=== PATIENT | female | born 1965 | race Caucasian/White ===

== ENCOUNTER 2024-12-07 15:10 | Outpatient (REF) | payer BC, SELFPAY ==
--- OUTSIDE RECORDS SUMMARY | 2024-12-07 15:16 | XMS_ITS | Data Portability ---
Author Organization [facility]tero [facility] [address] Address [address] [place] [address] Assessment No assessment recorded. Plan of Treatment Reminders Order Date Submit Date Provider Last Modified By Organization Details Last Modified Time Details Appointments None recorded. Lab None recorded. Referral None recorded. Procedures None recorded. Surgeries None recorded. Imaging None recorded. Medication Orders albuterol sulfate 2.5 mg/3 mL (0.083 %) solution for nebulizatio n 2023 024 [email or web address] Not available 13:52:55 albuterol sulfate HFA 90 mcg/actuati on aerosol inhaler 2023 024 [facility] #[id number], [address] [place], [address], 4 14:22:50 prednisone 20 mg tablet 2023 024 [facility] #[id number], [address] [place], [address], 4 14:24:50 Patient TargetsNo targets recorded. Patient Instructions Encounter Date Encounter Id Patient Instructions Last Modified By Organization Details Last Modified Time 12/07/2023 [id number] peak flow* [email or web address] Not available 0 12/07/2023 14:16:45 How to use the Aerochamber Attach the inhaler to the chamber Cameron 2 puffs in to the chamber Put the chamber in your mouth with you lips closed around it Take 3 separate breaths from the chamber. Don't breath into the chamber. See printed instructions. Follow-up with your doctor if no improvement in 1 week. Seek Emergency Medical evaluation for any worsening symptoms. [email or web address] Not available 12/07/2023 14:23:11 Reason for Referral None Reported. Results Created Date Observation Date Name Description Value Unit Range Abnormal Flag Note LastModifiedBy Organization Detail LastModifiedTime 12/07/19 24 12/07/2023 peak flow* Pre (L/min) 278 Not Available [address] [place], [place] [address] [place] [address], [phone], 12/07/2023 13:38:17 12/07/19 24 12/07/2023 peak flow* Pulse 62 Not Available [address] [place], [place] [address] [address] [place] [address], [phone], 12/07/2023 13:38:17 12/07/19 24 12/07/2023 peak flow* Oxygen Saturation 99 Not Available [address] [place] [address], [phone], 12/07/2023 13:38:17 12/07/19 24 12/07/2023 peak flow* Post (L/min) 325 Not Available [address] [place], [place] [address], [phone], 12/07/2023 13:38:17 Result Notes None recorded. Problems No Known Problems Medical Equipment None Reported. Allergies No known drug allergies Medications Name Sig Start Date Stop Date Status Note LastModified by Organization Details LastModified Time albuterol sulfate 2.5 mg/3 mL (0.083 %) solution for nebulization Inhale 3 mL by nebulizatio n route. 2023 active Not Available Not Available Not Avai lable prednisone 20 mg tablet Take 3 tablets every day by oral route for 5 days, for congestion with wheezing. 2023 active Not Available Not Available Not Avai lable albuterol sulfate HFA 90 mcg/actuatio n aerosol inhaler Inhale 2 puffs 3 times a day by inhalation route for 7 days, for wheezing. 2023 active Not Available Not Available Not Avai lable Vitals Date Recorded Body height Body mass index (BMI) Body weight Pain severity - 0-10 verbal numeric rating [Score] - Reported Body temperature Respiratory rate Heart rate Oxygen saturation Oxygen saturation in Arterial blood by Pulse oximetry Systolic blood pressure Diastolic blood pressure Systolic blood pressure Diastolic blood pressure Provider Name and Address Organization Details Last Updated DateTime 4 154.94 cm 27.2 kg/m2 61468.3 g 0 97.1 [degF] 17 /min 55 /min 98 % 98 % 153 mm[Hg] 90 mm[Hg] 146 mm[Hg] 90 mm[Hg] Parisa Gould [place] - [facility] [employer] [facility] 13:27:28 Social History Question Answer Notes LastModified by [employer] ion Details LastModified Time Tobacco Smoking Status Never Smoker Parisa elizabeth [place] - [employer] [facility] 12/07/2023 13:22:07 What Is Your Level Of Alcohol Consumption? Occasional Information not available 12/07/2023 Are You Currently Employed? Yes [email or web address] Information not available 12/07/2023 Have You Had A Flu Shot This Season? No Information not available 12/07/2023 Have You Had Direct Contact, Or Contact During Intimacy, With Monkeypox Rash, Scabs, Or Body Fluids From A Person With Monkeypox? No [email or web address] Information not available 12/07/2023 What Is Your Relationship Status? [email or web address] Information not available 12/07/2023 Do You Use Any Illicit Or Recreational Drugs? No Information not available 12/07/2023 Have You Recently Traveled Abroad? No [email or web address] Information not available 12/07/2023 Do You Or Have You Ever Used Any Other Forms Of Tobacco Or Nicotine? No [email or web address] Information not available 12/07/2023 Sex: Unknown Functional Status None recorded. Mental Status None recorded. Family History Relationship Description Onset Age of this Age Resolved Age Notes LastModified by Organization Details LastModified Time Father No current problems or disability Not available 12/06 13:21:46 Mother No current problems or disability [email or web address] Not available 12/06 13:21:46 Medical History No medical history recorded. Gynecological History Statement/Question Response Is there any chance of ? No Obstetrics History GPAL:G 0 P 0 0 0 0 Past Encounters Encounter ID Performer Location Encounter Start Date Encounter Closed Date Diagnosis/Indication Diagnosis SNOMED-CT Code Diagnosis ICD10 Code Diagnosis Note [id number] [facility] [address] [place] [phone] 09/16/2019 13:11:31 09/16/2019 14:52:[id number] [place] [address] [address] [facility] [address] [place] [phone] 04/04/2021 13:49:02 04/04/2021 15:22:[id number] [place] [address] [address] [facility] [address] [place] [phone] 01/02/2016 10:33:34 01/02/2016 11:03:[id number] [place] [address] [address] [facility] [address] [place] [phone] 7 09/13/2019 15:48:32 09/13/2019 16:50:[id number] [place] [address] [address] [facility] [address] [place] [phone] 01/26/2017 16:25:28 01/26/2017 16:56:46 [id number] LEIGH [place] JULIO [place] [address] [place] [phone] 12/07/2023 13:12:51 12/07/2023 14:25:10 Persistent cough 905779588 R05.3 Black Elderberry Syrup:1-2 tsp 2-3 times a day for 5 days as needed for coughing.S ambucol Black Elderberry Original Syrup (available at [employer] )[employer] Black Elderberry Syrup, 5.4-Ounce Bottle (available at [employer] or [employer]) Use a cool mist humidifier in the room that you sleep to add moisture to the air, which should soothe the airways and help loosen any mucus that may be present. Health Concerns Section Related Observation LastModified by Organization Detai ls LastModified Time None Recorded Concern Status LastModified by Organization Details LastModified Time None Recorded Advance Directives Directive None Recorded Payers Encounter Date Sequence Insurance Name Policy Number Policy Thomas Covered Member ID Thomas Member ID Guarantor Name 01/26/2017 1 [place] [facility] ([place]) [id number] Barak S Thomas [id number] Lulu Thomas 09/13/2019 1 [place] [facility] ([place]) [id number] Barak S Thomas [id number] Lulu Thomas 09/16/2019 1 [place] [id number] Barak S Thomas [id number] Lulu Thomas 04/04/2021 1 [place] [facility] ([place]) [id number] Barak S Thomas [id number] Lulu Thomas 12/07/2023 1 [place] [facility] ([place]) [id number] Barak S Thomas [id number] Lulu Thomas Notes Date Note Type Note Provider Name and Address Organization Details Recorded Time 12/07/2023 text/html CongestionReport ed bypatient.Location:[facility]; without radiation Quality:tightness; inspiratory; expiratory; Wheezing Severity:moderate Duration:1 weeks Onset/Timing:daily Context:recent respiratory illness Aggravating Factors:none Alleviating Factors:rest Associated Symptoms:no shortness of breath; no chest pain/discomfort; no palpitations; no orthopnea; no paroxysmal nocturnal dyspnea; no fever; no chills; no night sweats; no sputum production; no hemoptysis; no weight gain; no dyspepsia; no dyspnea; no shortness of breath; no lightheadedness; no weakness; no hoarseness; does not limit activity; no anorexia; no mental status change; no weight loss; no tachycardia; no tachypnea; no hypoxemia; normal work of breathing; no peripheral edema; normal exercise tolerance;wheezing;fati dio;cough LEIGH ANN JULIO MD [address] [place], [address], [place] - [facility] 12/07/2023 14:40:15 OBGyn Episode No OBEpisode recorded.
--- OUTSIDE RECORDS SUMMARY | 2024-12-07 15:16 | XMS_ITS | Data Portability ---
Author Organization [facility], Home Service Address [address] [place] [address] Assessment Encounter Date Assessment Date Assessment LastModified by Organization Details LastModified Time 04/08/2021 04/08/2021 Patient agreed and verbally consents to this audio and video Telehealth appt via a secure platform [email or web address] Not available 04/08/2021 11:50:57 Plan of Treatment Reminders Order Date Submit Date Provider Last Modified By Organization Details Last Modified Time Details Appointments ANNUAL EXAM 2024 11:00A M DR TALBOT Not available Not available Not available Lab CMP, serum or plasma 2023 024 JADE [facility] (Centralized Electronic Ordering - All Locations), Patient Can Go To The Location Of Their Choice, 10/06/2023 16:53:30 CBC w/ auto diff 2023 024 JADE [facility] (Centralized Electronic Ordering - All Locations), Patient Can Go To The Location Of Their Choice, 10/06/2023 16:53:30 lipid panel, blood 2023 024 JADE [facility] (Centralized Electronic Ordering - All Locations), Patient Can Go To The Location Of Their Choice, 10/06/2023 16:53:29 vitamin D, 25-hydrox y, total, serum 2023 024 JADE [facility] (Centralized Electronic Ordering - All Locations), Patient Can Go To The Location Of Their Choice, 10/06/2023 16:53:29 CMP, serum or plasma 2020 021 JADE [facility] (Centralized Electronic Ordering - All Locations), Patient Can Go To The Location Of Their Choice, 01/20/2021 07:42:41 lipid panel, blood 2020 ATHENAFAX [facility] (Centralized Electronic Ordering - All Locations), Patient Can Go To The Location Of Their Choice, [id number] 01/12/2021 16:00:59 vitamin D, 25-hydrox y, total, serum 2020 021 ATHENAFAX [facility] (Centralized Electronic Ordering - All Locations), Patient Can Go To The Location Of Their Choice, [id number] 01/12/2021 16:00:59 CBC 2020 021 ATHENAFAX [facility] (Centralized Electronic Ordering - All Locations), Patient Can Go To The Location Of Their Choice, [id number] 01/12/2021 16:00:59 CMP, serum or plasma 2019 Not available 08/31/2019 11:43:44 CBC w/ diff 2019 JADE Not available 08/31/2019 18:40:53 lipid panel, blood 2019 020 Not available 08/31/2019 11:43:44 vitamin D, 25-hydrox y, total, serum 2019 JADE Not available 08/31/2019 19:19:30 hepatitis C Ab, serum 2019 JADE Not available 08/31/2019 18:47:47 Referral colonosco py referral 2019 jake Kang MD, [address], [place], [address], 09/21/2019 09:44:01 Procedures None recorded. Surgeries None recorded. Imaging XR, knee, 3 view 2023 024 [facility] (Radiology), [facility] [place], [address], 10/04/2023 19:47:35 XR, hip, unilatera l, 2 or 3 view 2023 024 [facility] (Radiology), [address] [place] [address], [address], 10/04/2023 19:43:39 Medication Orders Zithromax Z-Marquise 250 mg tablet 2020 021 [email or web address]acy #[id number], [address] [place], [address], 10/04/2023 11:03:12 ProAir HFA 90 mcg/actua tion aerosol inhaler 2020 021 [email or web address] [facility] #[id number], [address] [place], [address], 10/04/2023 11:03:05 Patient TargetsNo targets recorded. Patient InstructionsNo instructions recorded. Reason for Referral Colonoscopy Referral for Mikey lt health examination Referring Physician: Chi Talbot, Internal Medicine, Encounter Date: 08/31/2019 Results Created Date Observation Date Name Description Value Unit Range Abnormal Flag Note LastModifiedBy Organization Detail LastModifiedTime 10/11/19 20 10/11/2019 MAMMO , scree lian, bilat eral No observ ation record ed. Not Available 2019 06:48:55 03/06/20 21 03/06/2021 MAMMO , scree lian, digit al, bilat eral No observ ation record ed. [facility] Orders [address], [place], [address], 03/07/2021 08:04:16 02/07/20 22 02/06/2022 XR, sacru m + coccy x, 2 or more view No observ ation record ed. [email or web address] [place] [address], [address], 02/09/2022 10:47:34 10/04/19 24 10/04/2023 XR, hip, unila teral , 2 or 3 view No observ ation record ed. [address], [address], 10/07/2023 09:30:12 10/04/19 24 10/04/2023 XR, knee, 3 view No observ ation record ed. [facility] [address] [facility], [place], [address], 10/07/2023 09:30:13 10/10/19 24 10/10/2023 MAMMO , scree lian, digit al, bilat eral No observ ation record ed. [email or web address] [facility] [place] [address] [place], [address], 10/10/2023 17:03:06 10/19/19 25 10/18/2024 MAMMO , scree lian, digit al, bilat eral No observ ation record ed. [email or web address] [facility] [place] [address] [place], [address], 10/18/2024 20:45:58 Result Notes None recorded. Problems Name Problem SNOMED Code Status Onset Date Resolution Date Notes Provider Name and Address Organization Details Recorded Time COVID-19 620267771 Active 2020 1 Gisell To [facility] 1 16:20:55 Pain in coccyx 22939534 Active 2021 Chi Talbot DO [address] [place] [address], [address], [facility] 2 10:13:18 Pain of right hip joint 285508578107 102 Active 2023 Chi Talbot DO [address] [place] [address], [address], [facility] 4 11:18:10 Pain of left knee joint 150003093791 107 Active 2023 Chi Talbot DO [address] [place] [address], [address], [facility] 4 11:18:37 Osteoarth ritis of left knee joint 571574224782 109 Active 2023 Chi Talbot DO [address] [place], [address], [facility] 4 09:30:31 Pain of multiple joints 30531712 Active 2024 FAUSTINO ARNOLD [address] [place], [address], [facility] 5 14:57:53 Problem Notes None recorded. Procedures Surgical History None recorded. Imaging Results Imaging Date Name Status LastModified by Organiz atcounts include 234 beds at the [facility] Details LastModified Time 10/11/2019 [facility], [facility], [facility] 10/12/2019 06:48:55 03/06/2021 MAMMO, screening, digital, bilateral completed [address] [facility] Orders [address] [facility] [address], [place], [address], 03/07/2021 08:04:16 02/06/2022 XR, sacrum + coccyx, 2 or more view completed [address], [address], 02/09/2022 10:47:34 10/04/2023 XR, hip, unilateral, 2 or 3 view completed [address], [address], 10/07/2023 09:30:12 10/04/2023 XR, knee, 3 view completed [address], [address], 10/07/2023 09:30:13 10/10/2023 MAMMO, screening, digital, bilateral completed [email or web address] [facility] [address] [facility], [place], [address], 10/10/2023 17:03:06 10/18/2024 MAMMO, screening, digital, bilateral completed jbigda [facility] [address] [facility], [place], [address], 10/18/2024 20:45:58 Procedure Notes None recorded. Medical Equipment None Reported. Allergies No known drug allergies Medications Name Sig Start Date Stop Date Status Note LastModified by Organization Details LastModified Time vitamin d3 5,000 unit tabs active Not Available Not Available Not Available zinc gluconate 50 mg tabs active Not Available Not Available N ot Available Vitamin C 500 mg tablet active Not Available Not Available Not Available azithromyci n 250 mg tablet TAKE 2 TABLETS (500 MG) BY ORAL ROUTE ONCE DAILY FOR 1 DAY THEN 1 TABLET (250 MG) BY ORAL ROUTE ONCE DAILY FOR 4 DAYS 10/04 completed Not Available Not Available Not Available sulfamethox azole 800 mg-trimetho prim 160 mg tablet 12/31 completed Not Available Not Available Not Available amoxicillin 875 mg tablet TAKE 1 TABLET BY MOUTH TWICE A DAY FOR 10 DAYS active Not Available Not Available No t Available benzonatate 100 mg capsule 10/04 completed Not Available Not Available Not Available mometasone 50 mcg/actuati on nasal spray 10/04 completed Not Available Not Available Not Available zinc 50 mg tablet Take 1 tablet every day by oral route. active Not Available Not Available No t Available hydroxychlo roquine 200 mg tablet 10/04 completed Not Available Not Available Not Available albuterol sulfate HFA 90 mcg/actuati on aerosol inhaler Inhale 2 puffs every 4 hours by inhalatio n route. 10/04 completed Not Available Not Available Not Available ondansetron 4 mg disintegrat ing tablet active Not Available Not Available N ot Available milk thistle once per day active Not Available Not Available No t Available calcium once per day active Not Available Not Available No t Available flaxseed oil once per day active Not Available Not Available No t Available Vitamin D3 once per day active Not Available Not Available No t Available CoQ10 once per day active Not Available Not Available No t Available apple cider vinegar once per day active Not Available Not Available No t Available Glucos Chond Cplx Advanced once per day active Not Available Not Available No t Available GaviLyte-G 236 gram-22.74 gram-6.74 gram-5.86 gram oral solution 01/12 completed Not Available Not Available Not Available Probiotic once per day active Not Available Not Available No t Available krill oil once per day active Not Available Not Available No t Available quercetin dihydrate (bulk) active Not Available Not Available Not Available Spirulina active Not Available Not Leonor ilable Not Available Melatin 3 mg tablet Take 1 tablet every day by oral route. active Not Available Not Available No t Available K2 Plus D3 active Not Available Not Av ailable Not Available Women's 50 Plus Multivitami n once per day active Not Available Not Available No t Available Vitals Date Recorded Body height Body mass index (BMI) Body weight Heart rate Oxygen saturation Oxygen saturation in Arterial blood by Pulse oximetry Systolic blood pressure Diastolic blood pressure Provider Name and Address Organization Details Last Updated DateTime 0 158.75 cm 26.5 kg/m2 85145.4 4 g 67 /min 99 % 99 % 124 mm[Hg] 72 mm[Hg] Chi Talbot, DO [address] [place], [address] 0 11:22:52 Date Recorded Body height Body mass index (BMI) Body weight Heart rate Oxygen saturation Oxygen saturation in Arterial blood by Pulse oximetry Systolic blood pressure Diastolic blood pressure Provider Name and Address Organization Details Last Updated DateTime 0 157.48 cm 26.6 kg/m2 62261.9 7 g 72 /min 99 % 99 % 136 mm[Hg] 88 mm[Hg] Fouzia Marin [facility] 0 14:17:31 Date Recorded Body weight Heart rate Oxygen saturation Oxygen saturation in Arterial blood by Pulse oximetry Systolic blood pressure Diastolic blood pressure Provider Name and Address Organization Details Last Updated DateTime 1 29782.6 7 g 67 /min 98 % 98 % 122 mm[Hg] 72 mm[Hg] Chi Talbot, DO [address] [place], [address], [facility] Internal [facility] 1 15:41:47 Date Recorded Body height Body mass index (BMI) Body weight Heart rate Oxygen saturation Oxygen saturation in Arterial blood by Pulse oximetry Systolic blood pressure Diastolic blood pressure Provider Name and Address Organization Details Last Updated DateTime 4 157.48 cm 26.2 kg/m2 74061.7 1 g 66 /min 99 % 99 % 132 mm[Hg] 82 mm[Hg] Chi Talbot [address] [place], [address], [facility] Internal [facility] 11:02:22 Social History Question Answer Notes LastModified by Organizat ion Details LastModified Time Tobacco Smoking Status Never Smoker Fouzia Marin [facility] 01/01/2020 14:16:14 What Was The Date Of Your Most Recent Tobacco Screening? 10/04/2023 Information not available 10/04/2023 Sex: Female Functional Status None recorded. Mental Status None recorded. Family History Nothing Reported. Medical History No medical history recorded. Gynecological HistoryNo gynecological history recorded. Obstetrics History GPAL:G 0 P 0 0 0 0 Past Encounters Encounter ID Performer Location Encounter Start Date Encounter Closed Date Diagnosis/Indication Diagnosis SNOMED-CT Code Diagnosis ICD10 Code Diagnosis Note [id number] Chi Talbot [facility] Internal [address] [place] [address] 08/31/2019 11:06:41 08/31/2019 11:48:11 Adult health examination 159969043 Z00.00 Vitamin D deficiency 347 48571 E55.9 [id number] Chi Talbot DO [facility] Internal [address] [place] [address] 01/01/2020 14:09:58 01/01/2020 15:21:38 Adult health examination 760390800 Z00.00 doing fantastic no major issues reviewed lab in detail [id number] Chi aTlbot [facility] [address] [place] [address] [place] [address] 01/12/2021 15:31:46 01/12/2021 16:01:40 Active or passive immunization 466358740 Z23 Adult heal th examination 473520670 Z00.00 doing fantastic no major issues reviewed lab in detail [id number] Chi Talbot [facility] Internal [address] [place] [address] 04/08/2021 10:44:45 04/08/2021 14:06:08 COVID-19 607239084 U07.1 will start on z marquise and inhaler for COVID symptoms, preventati ve for pna from COVID. [id number] Chi Talbot DO [facility] [address] [facility] [address] 10/04/2023 10:58:29 10/04/2023 13:42:51 Active or passive immunization 069092513 Z23 utd Adult heal th examination 971170844 Z00.00 doing fantastic no major issues reviewed lab in detail Pain of ri ght hip joint 6865906079 01018 M25.551 Pain of le ft knee joint 7146495605 99504 M25.562 Health Concerns Section Related Observation LastModified by Organization Detai ls LastModified Time None Recorded Concern Status LastModified by Organization Details LastModified Time None Recorded Advance Directives Directive None Recorded Payers Encounter Date Sequence Insurance Name Policy Number Policy Thomas Covered Member ID Thomas Member ID Guarantor Name 08/31/2019 1 [place] [facility] [place] [id number] Barak S Thomas [id number] Lulu Thomas 01/01/2020 1 [place] [facility] ([place]) [id number] Barak S Thomas [id number] Lulu Thomas 01/12/2021 1 [place] [facility] [place] [id number] Barak S Thomas [id number] Lulu Thomas 04/08/2021 1 [place] [employer] [place] [id number] Barak S Thomas [id number] Lulu Thomas 10/04/2023 1 [place] [facility] [place] [id number] Barak S Thomas [id number] Lulu Thomas Notes Date Note Type Note Provider Name a nd Address Organization Details Recorded Time 0 text/html here as original and initial visnit here otherwise has no pmhx no surgeries no illnesses fam hx father w lymphoma mother ok , brothers are ok Chi Talbot DO [address] [place], [address] [place] [address] [facility] 08/31/2019 12:34:11 0 text/html Annual WellnessReported bypatient.Diet and Nutrition:healthy diet Fracture Risk:no history of fractures; no recent explained fracture; no sudden unexplained fractures; no previous musculoskeletal injuries Physical Activity:exercises on a regular basis; recent increase in physical activity; good physical condition Additional Lifestyle Factors:no tobacco use; no alcohol intake; stopped drinking alcohol Depression Risk:never feels sad, empty, or tearful; no loss of interest in activities; no significant changes in weight; no sleep disturbances or insomnia; no agitation; no loss of energy; no feelings of worthlessness or guilt; no thoughts of suicide; no history of depression; no history of mood disorders Hearing:no loss of hearing Vision:no vision problems here for rechk and is doing ok feels good no major issues cxld colonoscopy Chi Talbot DO [address] [place] [address], [phone] [place] [address] 01/01/2020 14:49:35 1 text/html Annual WellnessReported bypatient.Diet and Nutrition:healthy diet Fracture Risk:no history of fractures; no recent explained fracture; no sudden unexplained fractures; no previous musculoskeletal injuries Physical Activity:exercises on a regular basis; recent increase in physical activity; good physical condition Additional Lifestyle Factors:no tobacco use; no alcohol intake; stopped drinking alcohol Depression Risk:never feels sad, empty, or tearful; no loss of interest in activities; no significant changes in weight; no sleep disturbances or insomnia; no agitation; no loss of energy; no feelings of worthlessness or guilt; no thoughts of suicide; no history of depression; no history of mood disorders Hearing:no loss of hearing Vision:no vision problems Chi Talbot DO [address] [place], [address], [facility] Internal [facility] 01/12/2021 16:00:37 1 text/html c/o COVID the patient is COVID positivepresents via telemed the patient tested positive COVID on 04/03/21 with home test, re-tested with [facility] which was also positive on 04/04/21 the patient reports that she has been treating her symptoms with OTC medications, nasanex, normal supplements reached out already to another provider through [facility] for medication which she is waiting on reports congestion, headache, cough, nausea, fever, sobwill start on z-marquise and inhaler FAUSTINO ARNOLD [address] [place], [address], [facility] 04/08/2021 11:56:01 4 text/html Annual WellnessReported bypatient.Diet and Nutrition:healthy diet Fracture Risk:no history of fractures; no recent explained fracture; no sudden unexplained fractures; no previous musculoskeletal injuries Physical Activity:exercises on a regular basis; recent increase in physical activity; good physical condition Additional Lifestyle Factors:no tobacco use; no alcohol intake; stopped drinking alcohol Depression Risk:never feels sad, empty, or tearful; no loss of interest in activities; no significant changes in weight; no sleep disturbances or insomnia; no agitation; no loss of energy; no feelings of worthlessness or guilt; no thoughts of suicide; no history of depression; no history of mood disorders Hearing:no loss of hearing Vision:no vision problems Chi Talbot DO [address], [place], [address], [facility] 10/04/2023 11:29:56 OBGyn Episode No OBEpisode recorded.
[2024-12-07 18:15] LABS: C Reactive Protein 1.23 mg/dL (< or = 0.50); Uric Acid 4.9 mg/dL (2.4-5.7)
[2024-12-07 18:41] LABS: Erythrocyte Sedimentation Rate 8 MM/HR (0-20)
[2024-12-10 10:43] LABS: Anti Nuclear Antibody Screen NEGATIVE (NEGATIVE)
[2024-12-10 19:58] LABS: Lyme Abs Screen <0.90 index
[2024-12-13 19:58] LABS: A. Phagocytophilum Ab IgG <1:64 (<1:64); A. Phagocytophilum Ab IgM <1:20 (<1:20); E. Chaffeensis Ab IgG <1:64 (<1:64); E. Chaffeensis Ab IgM <1:20 (<1:20)
== END 2024-12-07 15:11 | disposition home or self-care (01) ==
LOC: HO.MANLDS 15:10
PROVIDERS: Visit Provider Physician Assistant
DX: M25.50 Pain in unspecified joint (principal)
CPT/HCPCS: 36415; 84550; 85652; 86038; 86140; 86617; 86618; 86666; 87040